=== PATIENT | male | born 1965 | race Two or more races ===

== ENCOUNTER 2025-03-29 13:31 | Emergency (ER) | payer BC, SELFPAY ==
[2025-03-29 13:53] LABS: Hematocrit 45.4 % (39.0-52.0); Hemoglobin 16.4 g/dL (13.0-18.0); Mean Corp Hgb Conc. 36.1 g/dL (33.0-37.0); Mean Corpuscular Volume 85.7 fL (80.0-94.0); Nucleated Red Blood Cells % 0 % (-); Platelet Count 233 10^3/uL (130-400); Red Cell Dist. Width 12.5 % (11.5-14.5)
[2025-03-29 14:07] LABS: ALT (SGPT) 71 U/L (0-50); AST (SGOT) 32 U/L (17-59); Albumin 4.8 g/dl (3.5-5.0); Alkaline Phosphatase 89 U/L (38-126); Blood Urea Nitrogen 15 mg/dl (9-20); Calcium 9.7 mg/dl (8.4-10.2); Carbon Dioxide 24 mmol/L (22-30); Chloride 105 mmol/L (98-107); Glucose 90 mg/dl (70-99); Potassium 4.1 mmol/L (3.5-5.1); Sodium 138 mmol/L (135-145); Total Protein 7.8 g/dl (6.3-8.2); eGFR > 60.00
[2025-03-29 14:18] LABS: Troponin I < 0.012 ng/ml
--- NOTE | 2025-03-29 14:59 | ED.GENMED ---
History of Present Illness
<Sunny Camejo PA-C - Last Filed: 03/29/25 16:50>
General
Chief Complaint: Chest Pain
Source: patient
Time Seen by Provider: 03/29/25 14:08
History of Present Illness
History of Present Illness:
60-year-old male presents complaining of onset of chest pain starting today as a dull ache to the left side of the chest fairly constant. This was preceded by shortness of breath with exertion and laying flat worsening over the past several weeks.
He states he hears himself wheezing. He has been using a Primatene Mist inhaler to help him breathe. He is a smoker. He smokes about 5 cigarettes a day. He denies leg swelling or calf pain. No recent travel or surgery. He has been found to
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
Phy Exam
<Sunny Camejo PA-C - Last Filed: 03/29/25 16:50>
Physical Exam
Physical Exam:
General: Well-appearing male no acute respiratory distress
HEENT: Normal cephalic atraumatic
Heart: Regular rate and rhythm
Lungs: Clear no wheeze
Extremities: No cyanosis or edema
Skin is warm no rash
Scores
<Sunny Camejo PA-C - Last Filed: 03/29/25 16:50>
Heart Score for Chest Pain Patients
STEMI patient?: No
History: Slightly or Non-Suspicious
ECG: Normal
Age: >45 - <65 years
Risk Factors: 1 or 2 Risk Factors
Troponin: </= Normal Limit
Heart Score for Chest Pain Patients: 2
Heart Score Risk: 2.5% MACE over next 6 weeks
<Martin Craig DO - Last Filed: 03/29/25 17:28>
Heart Score for Chest Pain Patients
Heart Score for Chest Pain Patients: 2
Heart Score Risk: 2.5% MACE over next 6 weeks
Course
<Sunny Camejo PA-C - Last Filed: 03/29/25 16:50>
Orders/Labs/Results
Orders:
Orders
03/29/25 13:32
ECG [Electrocardiogram (*1)] Urgent
Reason for Study: Chest Pain
EKG- Treatment ONCE
03/29/25 13:46
Complete Blood Count/With Diff Urgent
Comprehensive Metabolic Panel Urgent
NT-proBNP Urgent
Comment: PRO BNP ADDED ON BY FLOOR 3PM 03-29-25
Troponin I Urgent
03/29/25 14:50
CT Chest Angio W/wo Iv Contras Urgent
Comment:
Reason For Exam: cp, sob, h/o ascending anyeurism
03/29/25 15:07
Add On- LAB Urgent
Tests Added?: pro BNP
03/29/25 17:11
Ipratropium/Albuterol Sulfate [Duoneb] 3 ml INH R NOW STA
Abnormal Lab Results
03/29/25
13:46
WBC 12.3 H 10^3/uL
(4.8-10.8)
Abs Immat Gran (auto) 0.1 H 10^3/uL
(0-0.05)
Absolute Neuts (auto) 7.1 H 10^3/uL
(1.4-6.5)
Absolute Monos (auto) 1.2 H 10^3/uL
(0.1-0.6)
Immature Gran % 0.7 H %
(0-0.5)
Monocytes % 9.8 H %
(1.7-9.3)
ALT 71 H U/L
(0-50)
03/29/25 13:46
03/29/25 13:46
<Martin Craig DO - Last Filed: 03/29/25 17:28>
Orders/Labs/Results
Orders:
Orders
03/29/25 13:32
ECG [Electrocardiogram (*1)] Urgent
Reason for Study: Chest Pain
EKG- Treatment ONCE
03/29/25 13:46
Complete Blood Count/With Diff Urgent
Comprehensive Metabolic Panel Urgent
NT-proBNP Urgent
Comment: PRO BNP ADDED ON BY FLOOR 3PM 03-29-25
Troponin I Urgent
03/29/25 14:50
CT Chest Angio W/wo Iv Contras Urgent
Comment:
Reason For Exam: cp, sob, h/o ascending anyeurism
03/29/25 15:07
Add On- LAB Urgent
Tests Added?: pro BNP
03/29/25 17:11
Ipratropium/Albuterol Sulfate [Duoneb] 3 ml INH R NOW STA
Abnormal Lab Results
03/29/25
13:46
WBC 12.3 H 10^3/uL
(4.8-10.8)
Abs Immat Gran (auto) 0.1 H 10^3/uL
(0-0.05)
Absolute Neuts (auto) 7.1 H 10^3/uL
(1.4-6.5)
Absolute Monos (auto) 1.2 H 10^3/uL
(0.1-0.6)
Immature Gran % 0.7 H %
(0-0.5)
Monocytes % 9.8 H %
(1.7-9.3)
ALT 71 H U/L
(0-50)
03/29/25 13:46
03/29/25 13:46
<Sunny Camejo PA-C - Last Filed: 03/29/25 16:50>
MDM/Problems Addressed
Differential Diagnosis Includes:
Orthopnea, shortness of breath with exertion and chest pain. History of aneurysm. Consider ACS versus heart failure versus worsening aneurysm. EKG shows sinus rhythm without ischemic changes. Troponin is undetectable. Will order CT angio of the
chest. BNP pending
<Sunny Camejo PA-C - Last Filed: 03/29/25 16:50>
*Pulse Oximetry
Patient hypoxic: no
*Critical Care Note
Total Time (30-74mins, 75-104mins- exclusive of procedures): Not Applicable
<Sunny Camejo PA-C - Last Filed: 03/29/25 16:50>
Update Note
Update Note:
CT angio of the chest was negative for acute finding. There is a pulmonary nodule noted. No evidence of aneurysm of the aorta. Patient reassured. BNP negative. Overall workup is negative. Given symptoms he describes will have cardiology
follow-up as the chest pain hotline
ED Attending Note
<Sunny Camejo PA-C - Last Filed: 03/29/25 16:50>
-
Portions of this chart may have been created with voice recognition software.� Occasional wrong word or��sound alike� substitutions may have occurred due to the inherent limitations of voice recognition software.
<Martin Craig DO - Last Filed: 03/29/25 17:28>
ED Attending Note
Patient seen and examined by attending physician: Yes
I performed the substantive portion of visit, reviewed & personally made and approve the management plan that is documented in note by myself or JSOE.: Yes
ED Attending Note:
Seen with PA examined independently agree with assessment and plan
60-year-old male shortness of breath wheezing he is a smoker also some chest pressure, concerned that he had an aneurysm in his ascending aorta currently runs in his family, no recent PCP visits for follow-up, work appears negative, I have set him
up with a PCP also be set up the chest pain hotline
Discharge Plan
Departure
Patient Disposition: Home (Routine Discharge)
Date of Disposition: 03/29/25
Time of Disposition: 16:49
Patient with high blood pressure during this ER visit?: No
Discharge Problem:
Chest pain
Instructions: Chest Pain DCA Follow Up
Prescriptions:
New
albuterol sulfate [Ventolin HFA] 90 mcg/actuation HFA aerosol inhaler
2 puff inhalation 6XD PRN (Reason: shortness of breath or wheezing) Qty: 8.5 2RF
Referrals:
Jesus Brenner, DO [[facility]] - Next open appointment
UNKNOWN - PT DOES,NOT KNOW [Family Provider]
Activity Restrictions/Additional Instructions:
Please return here for worsening symptoms. Follow-up with cardiology otherwise
Interventions
Interventions:
*Risk Screen - Suicide Last Done: 03/29/25 13:38
*General Assessment Last Done: 03/29/25 13:38
*Neglect/Abuse Screening Last Done: 03/29/25 13:38
*ED- Fall Risk Assessment Last Done: 03/29/25 13:38
*ED COVID-19 Vaccine History Last Done: 03/29/25 13:38
*ED Influenza Vaccine History Last Done: 03/29/25 13:38
Discharge Date and Time
Print Language: ESTONIAN
[2025-03-29 15:52] VITALS: BP 139/82
[2025-03-29 16:00] VITALS: BP 124/88
== END 2025-03-29 17:30 | disposition home or self-care (01) ==
LOC: EMR 13:31
PROVIDERS: Student in an Organized Health Care Education/Training Program; EMERGENCY PHYSICIAN Emergency Medicine
DX: R07.89 Other chest pain (principal); F17.210 Nicotine dependence, cigarettes, uncomplicated
CPT/HCPCS: 99284; 94640; 71275; 80053; 83880; 84484; 85025; 93005; Q9967